=== PATIENT | female | born 1935 | race Caucasian/White ===

== ENCOUNTER → 2017-03-22 | Outpatient (CLI) | payer OTHER | END | disposition home or self-care (01) | LOC: GMAH 17:05 | PROVIDERS: ATTEND Family Medicine | DX: N39.0 Urinary tract infection, site not specified (principal) ==

== ENCOUNTER → 2017-04-26 | Outpatient (CLI) | payer OTHER | END | disposition home or self-care (01) | LOC: GMAH 16:39 | PROVIDERS: ATTEND Family Medicine | DX: N39.0 Urinary tract infection, site not specified (principal) ==

== ENCOUNTER → 2017-06-04 | Outpatient (CLI) | payer OTHER ==
--- NOTE | 2017-06-07 08:11 | CT ---
EXAM DESCRIPTION: CT ABDOMEN AND PELVIS WITHOUT AND WITH CONTRAST CLINICAL HISTORY: GROSS HEMATURIA COMPARISON: Noncontrast imaging July 08, 2010 TECHNIQUE: CT of the abdomen and pelvis are performed prior to and during IV bolus administration of nonionic contrast. Oral contrast medium was not utilized This exam was performed according to our departmental dose-optimization program, which includes automated exposure control, adjustment of the mA and/or kV according to patient size and/or use of iterative reconstruction technique. FINDINGS: The left lung base is unremarkable. A small focus of reticulonodular changes subsegmental in the posterior lateral right lung base suggests a small area of infiltration or scarring with the lung bases otherwise unremarkable. This finding was not present on remote 2010 examination. Noncontrast imaging demonstrates a large benign left renal cyst lower pole that has enlarged from approximately 8.22 9.4 cm in diameter since 2010 examination. Intrarenal calculi or renal obstruction is not apparent. The unenhanced appearance of the upper abdomen is unremarkable. Implanted electronic devices in each gluteal region overlying the posterior pelvis and prior left hip replacement is evident and new from prior study. Enhanced examination demonstrates normal appearance of the liver and gallbladder and biliary system. Small normal spleen is present. Pancreas and adrenal glands are unremarkable. The kidneys normally enhance without hydronephrosis or mass or worrisome lesion. The large benign cyst lower pole left kidney is otherwise unremarkable. The remainder the retroperitoneum is unremarkable. Extensive aortic calcification without aneurysm or retroperitoneal adenopathy is noted. A tiny subcentimeter upper pole cyst left kidney also noted. Extensive diverticulosis of the left colon is present without evidence of bowel obstruction or acute inflammatory process. Considerable stool in the right colon suggests an element of constipation Extensive prior surgery and internal fixation of the lower lumbar spine is noted. Layering contrast within the bladder is apparent. Mild dextroscoliosis of the lower lumbar spine is apparent on coronal imaging. The anterior abdominal wall is unremarkable. The bony spine is unremarkable with no destructive process identified. IMPRESSION: 1. Very large simple appearing 9.4 cm lower pole left renal cyst with slight interval enlargement from remote 2010 study and small subcentimeter benign cyst upper pole of the left kidney. 2. No solid renal masses or stone disease or obstruction is identified. 3. Left colonic diverticulosis and extensive aortic calcification. 4. Patchy reticulonodular changes focally in the posterior lateral right lung base, new from 2010 and most consistent with interval scarring or a patchy area of acute infiltration. Follow-up chest x-ray in several weeks to assess the lung bases particularly on the right is recommended Electronically signed by: Jean Dillon MD 06/07/2017 8:10 AM CDT
== END | disposition home or self-care (01) ==
LOC: CT 07:53
PROVIDERS: ATTEND Urology
DX: R31.0 Gross hematuria (principal)

== ENCOUNTER → 2018-03-16 | Outpatient (CLI) | payer OTHER | LOC: GMAH 11:26 | PROVIDERS: ATTEND Family Medicine | DX: I50.9 Heart failure, unspecified (principal); M06.9 Rheumatoid arthritis, unspecified ==

== ENCOUNTER → 2018-03-24 | Outpatient (CLI) | payer OTHER | LOC: GMAH 14:37 | PROVIDERS: ATTEND Family Medicine | DX: N39.0 Urinary tract infection, site not specified (principal) ==